=== PATIENT | male | born 1990 | race Two or more races ===

== ENCOUNTER 2020-02-11 23:57 | Emergency (ER) | payer MEDICAID ==
[~2020-02-11] VITALS: Ht 177.8 cm; Wt 72.0 kg
[2020-02-12 03:05] LABS: CLARITY URINE CLEAR (CLEAR); COLOR URINE YELLOW (YELLOW); KETONES URINE NEGATIVE (NEGATIVE); LEUKOCYTE ESTERASE URINE 2+ (NEGATIVE); NITRITE URINE NEGATIVE (NEGATIVE); OCCULT BLOOD URINE TRACE (NEGATIVE); PROTEIN URINE NEGATIVE (NEGATIVE); SPECIFIC GRAVITY URINE 1.028 (1.005-1.030); UROBILINOGEN URINE 0.2 E.U./dL (0.2-1.0)
[2020-02-12] MEDS ORDERED: AZITHROMYCIN 500 MG TABLET PO ONE (04:30)
[2020-02-12] MEDS ORDERED: LIDOCAINE HCL 1% 20ML VIAL (Pyxis) INJ INFIL ONE (04:30)
[2020-02-12] MEDS ORDERED: CEFTRIAXONE SODIUM 250 MG/VIAL IM ONE (04:30)
[2020-02-12 04:56] VITALS: BP 115/76
== END 2020-02-12 04:58 | disposition home or self-care (01) ==
LOC: ER 23:57
DX: R30.9 Painful micturition, unspecified (principal); A64 Unspecified sexually transmitted disease
CPT/HCPCS: 81003; 87086; 96372; 99283; J0696; J3490

== ENCOUNTER 2020-06-18 21:13 | Emergency (ER) | payer BC, MEDICAID ==
[~2020-06-18] VITALS: Ht 177.8 cm; Wt 73.0 kg
[2020-06-18 21:16] VITALS: BP 131/83
[2020-06-18] MEDS ORDERED: CEFTRIAXONE SODIUM 250 MG/VIAL IM ONE (22:15)
[2020-06-18] MEDS ORDERED: DOXYCYCLINE HYCLATE 100MG CAPSULE PO ONE (22:15)
[2020-06-18] MEDS ORDERED: LIDOCAINE HCL/PF 1% 10 MG/ML 5ML VIAL IJ ONE (22:30)
[2020-06-18] MEDS ORDERED: DOXY100C42 MT (22:36)
== END 2020-06-18 23:35 | disposition home or self-care (01) ==
LOC: ER 21:13
DX: Z20.2 Contact with and (suspected) exposure to infections with a predominantly sexual mode of transmission (principal); R30.0 Dysuria
CPT/HCPCS: 96372; 99283; J0696; J3490; 87491; 87591

== ENCOUNTER 2022-04-10 21:11 | Emergency (ER) | payer BC, MEDICAID ==
[~2022-04-10] VITALS: Ht 177.8 cm; Wt 78.1 kg
[~2022-04-10 21:11] MED LIST: DOXY-326 MT
[2022-04-10 21:22] VITALS: BP 125/83
[2022-04-10] MEDS ORDERED: DOXY100C5 MT (21:53)
[2022-04-10] MEDS ORDERED: CEFTRIAXONE SODIUM 500 MG/VIAL IM ONE (22:00)
== END 2022-04-10 22:20 | disposition home or self-care (01) ==
LOC: ER 21:11
DX: Z20.2 Contact with and (suspected) exposure to infections with a predominantly sexual mode of transmission (principal)
CPT/HCPCS: 96372; 99283; J0696; Z7610

== ENCOUNTER 2023-02-03 16:21 | Emergency (ER) | payer MEDICAID ==
[~2023-02-03] VITALS: Ht 180.3 cm; Wt 81.6 kg
[~2023-02-03 16:21] MED LIST changes: -DOXY-326 MT; +DOXY-456 MT; +DOXY100C5 MT
[2023-02-03 16:41] VITALS: BP 118/75; PULSE 100; RESP 16; TEMP 98.2; O2SAT 99
== END 2023-02-03 19:16 | disposition left against medical advice (07) ==
LOC: ER 16:21
DX: M54.9 Dorsalgia, unspecified (principal); Z53.21 Procedure and treatment not carried out due to patient leaving prior to being seen by health care provider
CPT/HCPCS: 99281